=== PATIENT | female | born 1980 | race African-American/Black ===

== ENCOUNTER 2018-10-04 17:03 | Emergency (ER) | payer OTHER ==
[~2018-10-04] VITALS: Wt 106.2 kg
[~2018-10-04 17:03] MED LIST: PREN1TAB17 PO
[2018-10-04 17:12] VITALS: BP 121/62; PULSE 92; RESP 19
[2018-10-04] MEDS ORDERED: SULF15DR19 LEFT EYE (18:10)
--- NOTE | 2018-10-04 18:13 | ERD ---
ER Documentation Chief Complaint Chief Complaint bib self, cc: left eye swelling x 3 days HPI 38-year-old female presents with left eye redness for the last 3 days. She had some discharge and watering as well. She denies visual changes, significant pain, or history of trauma. She is here with a child who also has red eyes and a cough. Denies contact lens use. ROS All systems reviewed and are negative except as per history of present illness. Medications Home Meds Active Scripts Sulfacetamide Sodium* (Bleph-10*) 10%-15 Ml Opht Drops, 1 DROP LEFT EYE QID for 7 Days, #1 EA Prov:BALJEET MARTINEZ MD 10/04/18 Reported Medications Vit-Iron Fumarate-FA ( Tablet) 1 Each Tablet, 1 EACH PO DAILY 06/06/13 Allergies Allergies: Coded Allergies: No Known Allergies (Verified Allergy, 01/25/13) FmHx Family History: No diabetes, No coronary disease, No other Physical Exam Vitals Vital Signs Date Temp Pulse Resp B/P (MAP) Pulse Ox O2 O2 Flow FiO2 Time Delivery Rate 10/04/18 98.1 92 19 121/62 100 17:12 (81) Physical Exam Const: No acute distress Head: Atraumatic Eyes: Scleral redness and slight ecchymosis. Eyes Johnson and extraocular movements intact. No proptosis or abnormal eye movements. Visual acuity shows no acute abnormalities. ENT: Normal External Ears, Nose and Mouth. Neck: Full range of motion. No meningismus. Resp: Clear to auscultation bilaterally Cardio: Regular rate and rhythm, no murmurs Abd: Soft, non tender, non distended. Normal bowel sounds Skin: No petechiae or rashes Back: No midline or flank tenderness Ext: No cyanosis, or edema Neur: Awake and alert Psych: Normal Mood and Affect Procedures/MDM Patient presents with left eye redness in the setting of a child with URI. She likely has conjunctivitis. Current history is, signs or symptoms do not suggest ulcers, dendritic lesions, abrasions, there is no signs of additional concerning symptoms. Patient has no signs or symptoms of visual changes, visual field deficits. There are no signs or symptoms to suggest orbital cellulitis, retinal detachment, optic neuritis, retinal artery ischemia, dendritic lesions, ulcers, threats to vision or additional eye emergencies. Doubt acute glaucoma. Patient will be discharged home with recommendations for primary care and ophthalmology follow-up within the next 1-2 days. They should otherwise return to the ER for persistent or worsening symptoms. We will treat with Bleph-10, recommendations for warm compresses, primary care follow-up and ophthalmology evaluation for persistent symptoms. The patient was stable with no new complaints during the ER course. Clinically, there is no current evidence to suggest meningitis, sepsis, acute abdomen, pneumonia, stroke, acute coronary syndrome, pulmonary embolism, aortic dissection or any other emergent condition appearing to require further evaluation or hospitalization. Patient counseled regarding my diagnostic impression and care plan. Prior to discharge all questions answered. Pt agrees with treatment plan and understands strict return precautions. Pt is instructed to follow up with primary care provider within 24-48 hours. Precautionary instructions provided including instructions to return to the ER if not improving or for any worsening or changing symptoms or concerns. Departure Diagnosis: Primary Impression: Conjunctivitis Conjunctivitis type: unspecified Laterality: left Qualified Codes: H10.9 - Unspecified conjunctivitis Condition: Stable Patient Instructions: Conjunctivitis, Non-Specific Referrals: [facility] Hours: Mon - Fri 9:00 AM - 5:00 PM Additional Instructions: Likely viral illness or infection should resolve the next few days, but recheck for new or worsening symptoms or with primary care doctor or advisory application developer for persistent symptoms. BALJEET MARTINEZ MD Oct 04, 2018 18:13
== END 2018-10-04 19:04 | disposition home or self-care (01) ==
LOC: FTE 17:03
DX: H10.9 Unspecified conjunctivitis (principal)
CPT/HCPCS: 99283